=== PATIENT | male | born 1970 | race Caucasian/White ===

== ENCOUNTER 2020-05-29 13:43 | Emergency (ER) | payer MEDICAID, SELFPAY ==
[~2020-05-29] VITALS: Ht 167.6 cm; Wt 62.1 kg
[2020-05-29 13:51] VITALS: BP 172/102
--- NOTE | 2020-05-29 14:33 | NUR ---
NO ANSWER IN LOBBY
--- NOTE | 2020-05-29 14:46 | NUR ---
No answer when called for room from lobby.
--- NOTE | 2020-05-29 14:55 | NUR ---
No answer when called for room from lobby.
== END 2020-05-29 14:56 | disposition left against medical advice (07) ==
LOC: ED 13:45
DX: T67.01XA Heatstroke and sunstroke, initial encounter (principal); R10.9 Unspecified abdominal pain; Z53.21 Procedure and treatment not carried out due to patient leaving prior to being seen by health care provider